=== PATIENT | female | born 1975 | race Caucasian/White ===

== ENCOUNTER → 2017-03-13 | Outpatient (CLI) | payer OTHER ==
--- NOTE | 2017-03-13 20:39 | CT ---
EXAMINATION TYPE: CT sinus wo con DATE OF EXAM: 03/13/2017 7:38 PM COMPARISON: NONE HISTORY: Left ear feels plugged x [address] DLP: 648.00 mGycm Automated exposure control for dose reduction was used. FINDINGS: The orbital margins are intact. Globes are symmetric. There is fairly normal development and aeration of the paranasal sinuses. I see no bony destructive process. Nasal septum deviates to the left side. The zygomatic arches are intact. The visualized mastoid air cells appear normally aerated. External auditory canals appear normal. There is normal aeration of the epitympanic recess bilaterally. Tempor omandibular joints appear normal. IMPRESSION: NEGATIVE CT SCAN OF THE PARANASAL SINUSES. I DO NOT SEE A CAUSE FOR THE PATIENT'S SYMPTOMS.
== END | disposition home or self-care (01) ==
LOC: RADCTMAIN 19:09
PROVIDERS: ATTEND Family Medicine
DX: J32.9 Chronic sinusitis, unspecified (principal)
CPT/HCPCS: 70486

== ENCOUNTER → 2018-07-28 | Outpatient (CLI) | payer BC ==
--- NOTE | 2018-07-28 16:32 | US ---
EXAMINATION TYPE: US pelvic complete DATE OF EXAM: 07/28/2018 COMPARISON: NONE CLINICAL HISTORY: R10.9 abd pain. known fibroid, pelvic pain and pressure TECHNIQUE: TA. Date of LMP: 07/07/2018 EXAM MEASUREMENTS: Uterus: 16.2 x 13.9 x 10.3cm Endometrial Stripe: 1.1 cm Right Ovary: not seen Left Ovary: not seen 1. Uterus: Anteverted 12.2cm fibroid seen. This is heterogenous and isoechoic 2. Endometrium: wnl 3. Right Ovary: not seen due to enlarged UT and bowel gas 4. Left Ovary: not seen due to enlarged UT and bowel gas 5. Bilateral Adnexa: wnl 6. Posterior cul-de-sac: wnl IMPRESSION: 1. Large uterine fibroid
--- NOTE | 2018-07-28 16:34 | US ---
EXAMINATION TYPE: US abdomen complete DATE OF EXAM: 07/28/2018 COMPARISON: NONE CLINICAL HISTORY: R10.9 abd pain. abd pain and patient is unsure if related to known large fibroid in uterus, cholecystectomy EXAM MEASUREMENTS: Liver Length: 17.0 cm Gallbladder Wall: Surgically absent CBD: 0.4 cm Spleen: 9.9 cm Right Kidney: 9.5 x 4.5 x 3.9 cm Left Kidney: 10.7 x 3.5 x 4.2 cm Pancreas: wnl Liver: wnl Gallbladder: Surgically absent Evidence for sonographic Saunders's sign: no CBD: wnl Spleen: wnl Right Kidney: wnl Left Kidney: wnl Upper IVC: wnl Abd Aorta: wnl IMPRESSION: 1. Normal abdomen ultrasound
== END | disposition home or self-care (01) ==
LOC: RADUSWWP 07:32
PROVIDERS: ATTEND Family Medicine
DX: D25.9 Leiomyoma of uterus, unspecified (principal); R10.9 Unspecified abdominal pain
CPT/HCPCS: 76700; 76856

== ENCOUNTER → 2018-11-01 | Outpatient (CLI) | payer BC ==
[2018-11-01 17:40] LABS: Basophils # (A) 0.1 k/uL (0-0.2); Basophils % (A) 1 %; Eosinophils # (A) 0.2 k/uL (0-0.7); Eosinophils % (A) 3 %; HCT 40.3 % (34.0-46.0); HGB 13.3 gm/dL (11.4-16.0); Lymphocytes # (A) 1.7 k/uL (1.0-4.8); Lymphocytes % (A) 21 %; MCH 30.8 pg (25.0-35.0); MCHC 33.1 g/dL (31.0-37.0); Mean Platelet Volume 6.2; Monocytes # (A) 0.5 k/uL (0-1.0); Monocytes % (A) 6 %; Neutrophils # (A) 5.3 k/uL (1.3-7.7); Neutrophils % (A) 67 %; Platelet Count 284 k/uL (150-450); RBC 4.33 m/uL (3.80-5.40); RDW 12.6 % (11.5-15.5); WBC 7.9 k/uL (3.8-10.6)
[2018-11-01 17:57] LABS: Anion Gap 8 mmol/L; Blood Urea Nitrogen 13 mg/dL (7-17); Carbon Dioxide 28 mmol/L (22-30); Chloride 102 mmol/L (98-107); Glucose 110 mg/dL (74-99); Potassium 4.4 mmol/L (3.5-5.1); Sodium 138 mmol/L (137-145)
== END ==
LOC: LABPAT 17:04
PROVIDERS: ATTEND Obstetrics & Gynecology Obstetrics
DX: Z01.812 Encounter for preprocedural laboratory examination (principal); D25.9 Leiomyoma of uterus, unspecified
CPT/HCPCS: 80051; 82565; 82947; 84520; 85025; 87086

== ENCOUNTER 2018-11-09 05:50 | Day surgery (SDC) | payer BC ==
[2018-11-05 12:37] VITALS: BMI 22.7
--- NOTE | 2018-11-08 11:25 | P.HPOB ---
History of Present Illness H&P Date: 11/08/18 Chief Complaint: enlarged fibroid uterus, pelvic pain This is a pleasant 43 yo that presents with c/o pevic pain and known enlarged fibroid uterus. she had an ultrasound done revelaing an enlarged uterus and largest fibroid measuring 12 cm, total uterus is 16 cm. menses can be heavy at times but are regular q month. she states she just feels like her abdomen is enlarging and she feels . Review of Systems Constitutional: Reports fatigue, Denies chills, Denies fever Ears, nose, mouth and throat: Denies headache Cardiovascular: Denies edema Respiratory: Denies cough, Denies dyspnea Gastrointestinal: Reports abdominal pain, Denies constipation, Denies diarrhea Genitourinary: Reports pelvic pain, Denies urge incontinence, Denies urgency Past Medical History Past Medical History: GERD/Reflux History of Any Multi-Drug Resistant Organisms: None Reported Past Surgical History: Cholecystectomy Additional Past Surgical History / Comment(s): NASAL SURGERY, RIGHT FOOT X2- BUNION , LEFT FOOT-BUNION Past Anesthesia/Blood Transfusion Reactions: Postoperative Nausea & Vomiting ( PONV) Smoking Status: Never smoker - Past Family History Sister(s) Family Medical History: Cancer Additional Family Medical History / Comment(s): MELENOMA Medications and Allergies Home Medications Medication Instructions Recorded Confirmed Type Albuterol Sulfate [Proair Hfa] 2 puff INHALATION Q6HR PRN 11/05/18 11/05/18 History Azithromycin [Zithromax Z-pack] 250 mg PO DAILY 11/05/18 11/05/18 History Esomeprazole Magnesium [NexIUM] 20 mg PO 1200 11/05/18 11/05/18 History Fluticasone Nasal [place] [Flonase 2 spr EA NOSTRIL DAILY PRN 11/05/18 11/05/18 History Nasal [place]] Leuprolide Acetate [Lupron Depot] 11.25 mg IM Q90D 11/05/18 11/05/18 History Loratadine-Pseudoeph 5-120 mg 1 each PO Q12HR 11/05/18 11/05/18 History [Claritin-D 12 HR] methylPREDNISolone Dose Pack 4 mg PO DIRECTED 11/05/18 11/05/18 History [Medrol Dose Pack] Allergies Allergy/AdvReac Type Severity Reaction Status Date / Time EYE DROP (UNKNOWN NAME) Allergy Unknown Uncoded 11/05/18 12:57 Exam Osteopathic Statement: *. No significant issues noted on an osteopathic structural exam other than those noted in the History and Physical/Consult. targeted physical exam, in general this is a well nourished well developed female in no acute distress. heart noted to have RRR< lungs are clear to auscultation, abdomen is distended with enlarged uterus, on bimanual exam, uterus is enlarged but mobile measuring 16-18 weeks. Assessment and Plan (1) Uterine fibroid Status: Acute Code(s): D25.9 - LEIOMYOMA OF UTERUS, UNSPECIFIED SNOMED Code( s): 92303281 (2) Enlarged uterus Status: Acute Code(s): N85.2 - HYPERTROPHY OF UTERUS SNOMED Code(s): 601433157 Plan: plan RAVH/DC, possible open to complete procedure. risks are reviewed with pt in detail including but not limited to infection, bleeding, damage to bladder bowel or ureteric injury or other pelvic structures. all questions answered and pt wishes to proceed with surgery. Time with Patient: Greater than 30
[~2018-11-09 05:50] MED LIST: HYDROmorphone 1 MG/ML 1 ML SYRINGE IVP PRN; LIDOCAINE 1% 20 ML VIAL (10MG/ML) FOR IV START INTRADERMA PRN; MIDAZOLAM 2 MG/2 ML VIAL IV PRN; ceFAZolin IN SWFI 2 GM/20 ML SYRINGE IVP ONE; fentaNYL (PF) 50 MCG/ML 2 ML AMP IV PRN
[2018-11-09 06:38] LABS: Glucose,Whole Blood 88 mg/dL (75-99)
[2018-11-09] MEDS: LACTATED RINGERS 1,000 ML IV SCH ×3 (06:55→11:48)
[2018-11-09] MEDS: DEXAMETHASONE SOD PHOSPHATE 10 MG/ML 1 ML VIAL IV ONE (06:56)
[2018-11-09] MEDS: ONDANSETRON 4 MG/2 ML VIAL IVP ONE (06:56)
[2018-11-09] MEDS ORDERED: ONDANSETRON 4 MG/2 ML VIAL IVP PRN (07:35)
[2018-11-09] MEDS ORDERED: Acetaminophen-Codeine 300-30mg TAB PO PRN (07:35)
[2018-11-09] MEDS ORDERED: diphenhydrAMINE 25 MG CAP PO PRN (07:35)
[2018-11-09] MEDS ORDERED: IBUPROFEN 600 MG TAB PO PRN (07:35)
[2018-11-09] MEDS ORDERED: BUPIVACAINE (PF) 0.5% 30 ML VIAL SQ ONE (08:20)
--- NOTE | 2018-11-09 09:45 | P.OP ---
Date of Procedure: 11/09/18 Preoperative Diagnosis: Enlarged uterus, uterine fibroids Postoperative Diagnosis: Same Procedure(s) Performed: Robotic-assisted vaginal hysterectomy with bilateral salpingectomy, diagnostic cystoscopy Anesthesia: RODOLFOA Surgeon: Ely Iniguez Medical Records Clerk #1: Naty Michel Estimated Blood Loss (ml): 100 IV fluids (ml): 1,100 Urine output (ml): 200 Pathology: other (Uterus cervix fallopian tubes) Condition: stable Disposition: PACU Indications for Procedure: Enlarged uterus with noted uterine fibroids largest measuring 12 cm, pelvic pressure and abdominal bloating Operative Findings: Globular enlarged uterus normal ovaries bilaterally otherwise normal upper abdomen, on cystoscopy bladder was noted to be normal intact, both ureteral orifices were spilling clear yellow urine in normal fashion Description of Procedure: Patient is in the preoperative area and informed consent is obtained once again. She is reminded of the risks of surgery including but not limited to infection, bleeding, damage to bladder, bowel, ureteric or other pelvic structures. Patient states understanding and wishes to proceed. Patient was taken to the back to the operating suite where general anesthesia was obtained without difficulty by the anesthesia department. She was then prepped and draped in the normal sterile fashion in the dorsal lithotomy position. A Sherwood catheter was then placed under sterile technique. A weighted speculum was placed in the posterior vaginal vault the anterior lip of the cervix is visualized and grasped with a single-tooth tenaculum. Endocervical canal was then dilated and a medium V care was placed into the endometrial cavity the balloon was insufflated and cervical Placed snugly against the cervix. At this point all instruments were removed from the patient's vaginal vault. Attention was then turned to the patient's abdomen where 3 fingerbreadths above the umbilicus a small skin incision is made through this incision the Veress needle was placed. Once the Veress needle was deemed to be in appropriate position with a drop in CO2 pressure with insufflation of CO2 gas CO2 insufflation was allowed to occur. Approximately 3 L of gas were used to obtain pneumoperitoneum. At this time it was extended to 12 mm and a 12 mm trocar and sleeve with the laparoscope in place was placed under direct visualization. The additional port sites are placed at 10 cm lateral and 3 cm inferior to the midline port these 8 mm operative ports and the da Demarcus machine. In the left upper quadrant 12 mm trocar and sleeve is placed under direct visualization. The above noted findings were visualized. The da Demarcus was then docked in the usual fashion in the operative arms were placed. In the right operative arms and monopolar scissors is placed in the left operative arm the bipolar forceps was placed. Attention was then turned to the patient's left fallopian tube which was grasped regular to the mesosalpinx and continued to needed toward the uterine ovarian ligament this was then coagulated distally and proximally and divided. This continued through the broad and toward the round which was regulated distally and proximally and divided. The bladder flap was then created from the left using sharp and blunt dissection. This was then repeated on the right. The ascending branch of the uterine artery on the right side after the bladder reflection and then Band-Aid was visualized regulated distally and proximally divided. This was then repeated on the opposite side. A Ray-Radha was then passed into the abdomen and the bladder was then dissected away further from the operating field. At this point the uterine arteries had been coagulated and were hemostatic on both sides and the only remaining attachment was the vaginal attachment, therefore a colpotomy incision was made in circumferential fashion and the uterus was placed into the vaginal vault. The uterus was then bivalved from below and delivered intact. The pelvis was then copiously irrigated and the vaginal cuff was then closed in [id number] sutures of 0 Vicryl. Approximately 5 sutures were used to obtain closure. Both ureters were noted to be pulsating normally in the abdomen at this point the da Demarcus robot was undocked in usual fashion and attention was then turned the patient's Sherwood catheter the catheter was removed without difficulty a cystoscope was placed through the urethra and toward the bladder the bladder bubble was noted the bladder was noted to be intact and both ureteral orifices were noted to be spilling clear yellow urine in a normal fashion. Cystoscopy fluid along with the cystoscope was removed. The Sherwood catheter was then replaced. Attention was then turned to the patient's abdomen where the skin incisions were closed with 4-0 Vicryl in a subcuticular fashion Steri-Strips and sterile dressings were applied as needed. All counts were correct 2 patient tolerated procedure well and was taken the recovery room awake and in stable condition.
[2018-11-09] MEDS ORDERED: IBUPROFEN IV 800 MG in SODIUM CHLORIDE 0.9% 250 ML IV ONE (10:30)
[2018-11-09 11:37] VITALS: RESP 16
[2018-11-09] MEDS: Acetaminophen-Codeine 300-30mg TAB PO PRN (20:40)
[2018-11-09] MEDS: SENNOSIDES-DOCUSATE SODIUM 1 EACH TAB PO SCH (21:20)
[2018-11-10] MEDS: DEXAMETHASONE SOD PHOSPHATE 10 MG/ML 1 ML VIAL IV ONE (05:07)
[2018-11-10] MEDS: ONDANSETRON 4 MG/2 ML VIAL IVP ONE (05:10)
[2018-11-10] MEDS: Acetaminophen-Codeine 300-30mg TAB PO PRN ×2 (07:50→15:33)
[2018-11-10] MEDS: SENNOSIDES-DOCUSATE SODIUM 1 EACH TAB PO SCH (07:52)
[2018-11-10 07:59] LABS: Basophils % (A) 0 %; Eosinophils # (A) 0.1 k/uL (0-0.7); Eosinophils % (A) 1 %; HCT 39.9 % (34.0-46.0); HGB 13.6 gm/dL (11.4-16.0); Lymphocytes # (A) 2.6 k/uL (1.0-4.8); Lymphocytes % (A) 25 %; MCH 31.3 pg (25.0-35.0); Mean Platelet Volume 6.2; Monocytes # (A) 0.7 k/uL (0-1.0); Monocytes % (A) 7 %; Neutrophils # (A) 6.8 k/uL (1.3-7.7); Neutrophils % (A) 66 %; Platelet Count 260 k/uL (150-450); RBC 4.33 m/uL (3.80-5.40); RDW 12.7 % (11.5-15.5); WBC 10.3 k/uL (3.8-10.6)
--- NOTE | 2018-11-10 08:36 | P.DS ---
Providers Date of admission: Expected date of discharge: 11/10/18 Attending physician: Ely Iniguez Primary care physician: Andrey Blanchard - Discharge Diagnosis(es) (1) Uterine fibroid Current Visit: No Status: Acute (2) Enlarged uterus Current Visit: No Status: Acute (3) S/P laparoscopic hysterectomy Current Visit: Yes Status: Acute Hospital Course: This is a 43-year-old healthy female with a known enlarged fibroid uterus that presented yesterday for robotic-assisted vaginal hysterectomy with bilateral salpingectomy, diagnostic cystoscopy. Patient had been on Lupron for the past 2 months given the enlarged nature of her uterus, with largest fibroid measuring 12 cm total uterine length 16-17 weeks. Surgery was completed without difficulty for further details on the procedure please see the operative report. Patient has done recently well post operatively. Patient did have issues with her Sherwood catheter last night but it draining clear yellow urine throughout the evening we are awaiting spontaneous void this morning. She states her pain is well-controlled with Tylenol No. 3. She is tolerating regular diet without nausea or vomiting and she wishes to be discharged home once spontaneous void is achieved. Patient Condition at Discharge: Good Plan - Discharge Summary New Discharge Prescriptions: No Action methylPREDNISolone Dose Pack [Medrol Dose Pack] 4 mg PO DIRECTED Azithromycin [Zithromax Z-pack] 250 mg PO DAILY Fluticasone Nasal [place] [Flonase Nasal [place]] 2 spr EA NOSTRIL DAILY PRN PRN Reason: Allergy Symptoms Loratadine-Pseudoeph 5-120 mg [Claritin-D 12 HR] 1 each PO Q12HR Esomeprazole Magnesium [NexIUM] 20 mg PO 1200 Albuterol Sulfate [Proair Hfa] 2 puff INHALATION Q6HR PRN PRN Reason: Shortness Of Breath Leuprolide Acetate [Lupron Depot] 11.25 mg IM Q90D Discharge Medication List Albuterol Sulfate [Proair Hfa] 2 puff INHALATION Q6HR PRN 11/05/18 [History] Azithromycin [Zithromax Z-pack] 250 mg PO DAILY 11/05/18 [History] Esomeprazole Magnesium [NexIUM] 20 mg PO 1200 11/05/18 [History] Fluticasone Nasal [place] [Flonase Nasal [place]] 2 spr EA NOSTRIL DAILY PRN [History] Leuprolide Acetate [Lupron Depot] 11.25 mg IM Q90D 11/05/18 [History] Loratadine-Pseudoeph 5-120 mg [Claritin-D 12 HR] 1 each PO Q12HR 11/05/18 [ History] methylPREDNISolone Dose Pack [Medrol Dose Pack] 4 mg PO DIRECTED 11/05/18 [ History] Follow up Appointment(s)/Referral(s): Ely Iniguez DO [Doctor of Osteopathic Medicine] - 1 Week Patient Instructions/Handouts: Laparoscopic Hysterectomy (DC) Discharge Disposition: HOME SELF-CARE
[2018-11-10 15:36] VITALS: BP 119/74; PULSE 81; TEMP 98.5
== END 2018-11-10 16:31 | disposition home or self-care (01) ==
LOC: OR 05:50 → 4FBP 09:40 → OR 11-10 16:31
PROVIDERS: ATTEND Obstetrics & Gynecology Obstetrics
DX: D25.9 Leiomyoma of uterus, unspecified (principal); N83.8 Other noninflammatory disorders of ovary, fallopian tube and broad ligament; N85.2 Hypertrophy of uterus; K21.9 Gastro-esophageal reflux disease without esophagitis; J45.909 Unspecified asthma, uncomplicated; Z79.52 Long term (current) use of systemic steroids; Z79.899 Other long term (current) drug therapy; Z79.2 Long term (current) use of antibiotics; Z90.49 Acquired absence of other specified parts of digestive tract
CPT/HCPCS: 81025; 85025; 88307; 58573; C1762; J1100; J2405; J1741; J0690

== ENCOUNTER → 2019-06-29 | Outpatient (CLI) | payer BC ==
--- NOTE | 2019-06-30 15:23 | MM ---
Reason for exam: screening (asymptomatic). Last mammogram was performed 4 years and 11 months ago. History: Patient is postmenopausal. Physical Findings: A clinical breast exam by your physician is recommended on an annual basis and results should be correlated with mammographic findings. MG Screening Mammo w CAD Bilateral CC and MLO view(s) were taken. Prior study comparison: August 14, 2014, bilateral MG diagnostic mammo w CAD BUDDY. The breast tissue is heterogeneously dense. This may lower the sensitivity of mammography. Benign appearing calcifications in the left breast. ASSESSMENT: Benign, BI-RAD 2 RECOMMENDATION: Routine screening mammogram of both breasts in 1 year.
== END | disposition home or self-care (01) ==
LOC: RADMAMWWP 15:04
PROVIDERS: ATTEND Family Medicine
DX: Z12.31 Encounter for screening mammogram for malignant neoplasm of breast (principal)
CPT/HCPCS: 77067

== ENCOUNTER → 2019-09-05 | Outpatient (CLI) | payer BC ==
--- NOTE | 2019-09-05 11:37 | ECHOS ---
STRESS ECHOCARDIOGRAM INDICATIONS: Chest pain/shortness of breath. MEDICATIONS: Gabapentin, Flonase, Nexium BASELINE HEART RATE: 89 BASELINE BLOOD PRESSURE: 104/64 MAXIMUM HEART RATE: 166 MAXIMUM BLOOD PRESSURE: 191/90 85% MPHR: 149 100% MPHR: 175 METS: 12.1 MAXIMUM STAGE REACHED: 4 TOTAL EXERCISE TIME: 11:00 CLINICAL INFORMATION: Patient was exercised for a total period of 11 minutes. The peak heart rate of 166 was achieved. Maximum blood pressure of 191/90 mmHg was noted. Resting EKG shows normal sinus rhythm with normal FL interval and QRS duration and normal ST-T waves. No ST- segment depression suggestive of ischemia is noted. No dysrhythmias are noted. The baseline echocardiographic images reveals normal left ventricular chamber size with normal left ventricular systolic function in the immediate postexercise period. Normal increase in the wall thickness and contractility is noted. FINAL IMPRESSION: 1. This stress echocardiographic study is negative for stress-induced ischemia. 2. EKG portion of the stress test is not suggestive of ischemia. 3. Patient's exercise tolerance is normal. MMODL / IJN: [id number] /
== END | disposition home or self-care (01) ==
LOC: RADNMMAIN 09:08
PROVIDERS: ATTEND Family Medicine
DX: R06.00 Dyspnea, unspecified (principal)
CPT/HCPCS: 93351

== ENCOUNTER → 2020-12-03 | Outpatient (CLI) | payer BC ==
--- NOTE | 2020-12-05 10:46 | MM ---
Reason for exam: screening (asymptomatic). Last mammogram was performed 1 year and 5 months ago. History: Patient is postmenopausal. Physical Findings: Nurse did not find any significant physical abnormalities on exam. MG Screening Mammo w CAD Bilateral CC and MLO view(s) were taken. Prior study comparison: June 29, 2019, bilateral MG screening mammo w CAD. August 14, 2014, bilateral MG diagnostic mammo w CAD BUDDY. The breast tissue is heterogeneously dense. This may lower the sensitivity of mammography. Finding: There is an intermediate concern, suspicious equal density (isodense), indistinct round mass located 1 cm from the nipple in the subareolar position of the right breast. New finding since June 29, 2019. ASSESSMENT: Incomplete: need additional imaging evaluation, BI-RAD 0 RECOMMENDATION: Special view mammogram of the right breast. If lesion persists on supplemental views, image directed ultrasound is recommended. [facility] will attempt to contact patient to return for supplemental views and ultrasound if indicated.
== END | disposition home or self-care (01) ==
LOC: RADMAMWWP 13:58
PROVIDERS: ATTEND Family Medicine
DX: Z12.31 Encounter for screening mammogram for malignant neoplasm of breast (principal)
CPT/HCPCS: 77067

== ENCOUNTER 2021-03-01 07:14 | Day surgery (SDC) | payer BC ==
[2021-02-28 09:08] VITALS: BMI 24.4
[2021-03-01 07:40] VITALS: RESP 16; TEMP 98.2
[2021-03-01] MEDS: LACTATED RINGERS 1,000 ML IV SCH ×2 (07:48→08:14)
[2021-03-01] MEDS ORDERED: LIDOCAINE 1% (10MG/ML) FOR IV START INTRADERMA ONE (07:48)
[2021-03-01] MEDS ORDERED: PROPOFOL 10 MG/ML 20 ML VIAL IV ONE (08:15)
[2021-03-01] MEDS ORDERED: MIDAZOLAM 2 MG/2 ML VIAL ONE (08:15)
[2021-03-01] MEDS ORDERED: fentaNYL (PF) 50 MCG/ML 2 ML AMP ONE (08:15)
[2021-03-01] MEDS ORDERED: IV FLUID CONTINUATION 1,000 ML IV ONE (08:31)
--- NOTE | 2021-03-01 08:50 | P.PCN ---
Date of Procedure: 03/01/21 Procedure(s) Performed: BRIEF HISTORY: Patient is a 46-year-old pleasant male scheduled for an elective colonoscopy as a part of evaluation of chronic diarrhea for the last several weeks duration. She she has diarrhea anywhere from 4-5 a day which are loose to watery in consistency. Denies any blood or mucus in the stool. PROCEDURE PERFORMED: Colonoscopy with random biopsy. PREOPERATIVE DIAGNOSIS: Chronic diarrhea of several weeks duration. IV sedation per Anesthesia. PROCEDURE: After informed consent was obtained, the patient, was brought into the endoscopy unit. IV sedation was administered by Anesthesia under continuous monitoring. Digital rectal examination was normal. Initially the Olympus CF-160 flexible video colonoscope was then inserted in the rectum, gradually advanced into the cecum without any difficulty. Careful examination was performed as the scope was gradually being withdrawn. Ileocecal valve and the appendiceal orifice were visualized and appeared normal. Prep was excellent. Mucosa of the cecum, ascending colon, transverse colon, descending colon, sigmoid colon, and rectum appeared normal. Random biopsies were done from ascending and descending colon to rule out microscopic/collagenous colitis Retroflexion was performed in the rectum and no lesions were seen. The patient tolerated the procedure well. IMPRESSION: Normal-appearing colon from rectum to cecum with no evidence of colitis or colorectal neoplasia . RECOMMENDATIONS: Findings of this examination were discussed with the patient as well as a family. She was advised to follow with the biopsies. She she is been having side effects with dicyclomine and hence he was advised to stop it. She'll be started on Imodium 1 tablet twice daily as needed and she'll be seen in office in 3-4 weeks.
[2021-03-01 08:53] VITALS: BP 113/78; PULSE 71
== END 2021-03-01 09:05 | disposition home or self-care (01) ==
LOC: ORWHC2ENDO 07:14
PROVIDERS: ATTEND Internal Medicine Gastroenterology
DX: K52.9 Noninfective gastroenteritis and colitis, unspecified (principal); K21.9 Gastro-esophageal reflux disease without esophagitis; Z79.899 Other long term (current) drug therapy; Z88.8 Allergy status to other drugs, medicaments and biological substances
CPT/HCPCS: 88305; 45380; J2250; J3010; J2704

== ENCOUNTER → 2024-03-21 | Outpatient (CLI) | payer BC ==
--- NOTE | 2024-03-22 07:24 | MM ---
Reason for Exam: Screening (asymptomatic). Last mammogram was performed 3 year(s) and 3 month(s) ago. Patient History: Menarche at age 12. First Full-Term at age 28. Hysterectomy at age 44. Postmenopausal. Patient has history of breast feeding. Risk Values: Magdalena 5 year model risk: 1.1%. NCI Lifetime model risk: 9.9%. Prior Study Comparison: 08/14/2014 Bilateral Diagnostic Mammogram, [facility]. 06/29/2019 Bilateral Screening Mammogram, [facility]. 12/03/2020 Bilateral Screening Mammogram, [facility]. Tissue Density: The breasts are extremely dense, which lowers the sensitivity of mammography. Findings: Analyzed By CAD. There is no suspicious group of microcalcifications or new suspicious mass in either breast. Overall Assessment: Negative, BI-RAD 1 Management: Screening Mammogram of both breasts in 1 year. . Patient should continue monthly self-breast exams. A clinical breast exam by your physician is recommended on an annual basis. This exam should not preclude additional follow-up of suspicious palpable abnormalities. Note on Magdalena scores and lifetime risk: 1. A Magdalena score greater than 3% is considered moderate risk. If this is the case, consider specialist referral to assess eligibility for a risk reducing agent. 2. If overall lifetime risk for the development of breast cancer is 20% or higher, the patient may qualify for future screening with alternating mammogram and breast MRI. Electronically signed and approved by: Charan Cabrera M.D. Radiologis
== END | disposition home or self-care (01) ==
LOC: RADMAMWWP 09:59
PROVIDERS: ATTEND Family Medicine
DX: Z12.31 Encounter for screening mammogram for malignant neoplasm of breast (principal); Z78.0 Asymptomatic menopausal state
CPT/HCPCS: 77063; 77067

== ENCOUNTER → 2024-11-16 | Outpatient (CLI) | payer BC ==
--- NOTE | 2024-11-16 18:23 | CT ---
EXAMINATION TYPE: CT abdomen pelvis w con DATE OF EXAM: 11/16/2024 4:42 PM COMPARISON: None CLINICAL INDICATION: Female, 49 years old with history of R10.13 Epigastric discomfort; constipation/ epigastric pain TECHNIQUE: Axial CT abdomen pelvis w con;Sagittal and coronal reformats were created on a separate w orkstation. Contrast used:100ml mL of Isovue 300 with IV Contrast, (none if empty) Oral contrast used: with Oral Contrast (none if empty) CT DLP: 645.9 mGycm, Automated exposure control for dose reduction was used. FINDINGS: LOWER CHEST: Unremarkable ABDOMEN LIVER: Unremarkable GALLBLADDER AND BILE DUCTS: Cholecystectomy clip. PANCREAS: Unremarkable. SPLEEN: Unremarkable. ADRENAL GLANDS: Unremarkable. KIDNEYS AND URETERS: No evidence of hydronephrosis or renal calculus. The ureters are unremarkable. PELVIS BLADDER: No evidence for wall thickening or mass given limitations of exam. REPRODUCTIVE: The uterus is surgically absent. ABDOMEN & PELVIS STOMACH AND BOWEL: Stomach and duodenum are unremarkable No evidence for acute abdominal process. Small to moderate amount of stool throughout the colon. No e vidence of bowel obstruction. Oral contrast extends into the large bowel transverse colon. PERITONEUM/RETROPERITONEUM: No evidence of pneumoperitoneum or free fluid. VASCULATURE: No evidence of aortic aneurysm. MUSCULOSKELETAL: No acute osseous abnormalities LYMPH NODES: No gross evidence for lymphadenopathy. SOFT TISSUE/ABDOMINAL WALL: Fat-containing umbilical hernia. IMPRESSION: Small to moderate amount of stool throughout the colon. No evidence for acute abdominal process. The stomach and duodenum are grossly unremarkable. [facility], , 11/16/2024 6:21 PM
== END | disposition home or self-care (01) ==
LOC: RADCTMAIN 14:33
PROVIDERS: ATTEND Family Medicine
DX: R10.13 Epigastric pain (principal); R19.5 Other fecal abnormalities
CPT/HCPCS: 74177; Q9967

== ENCOUNTER 2025-06-23 18:30 | Emergency (ER) | payer BC ==
[2025-06-23 18:43] VITALS: TEMP 97.8
--- NOTE | 2025-06-23 19:29 | ED ---
General Adult HPI - General Chief complaint: Recheck/Abnormal Lab/Rx Stated complaint: Hypertension Time Seen by Provider: 06/23/25 18:46 Source: patient Mode of arrival: ambulatory Limitations: no limitations - History of Present Illness Initial comments: Patient is a 50-year-old female with no past medical history presenting today for hypertension. Patient states she noticed a tingling sensation in her chest earlier today and measured her blood pressure. On her check blood pressure was 186/113. Earlier today was 166/119. States she has had uptrending blood pressures over the course of the last 2 months since she has been started on testosterone injections, which she is receiving for menopause symptoms. Her last injection was 1 month ago and her doctor has been trying to decrease her dose to due to concern for hypertension secondary to this. Next dose is scheduled for tomorrow. She receives IM injections at her doctor's office. She denies strokelike symptoms such as severe headache, changes of vision, focal numbness or weakness, slurred speech, difficulty in breathing, swelling in her legs, or decreased urine output. States she has chronic abdominal pain from IBS but denies any new abdominal pain. No first-degree family members history of ACS or stroke. Is not on any blood pressure medications. States she does drink 1 large coca-cola in the morning and 1-2 cans in the afternoon, when asked about caffeine use. - Related Data Home Medications Medication Instructions Recorded Confirmed Albuterol Sulfate [Proair Hfa] 2 puff INHALATION Q6HR PRN 11/05/18 03/01/21 Esomeprazole Magnesium [NexIUM] 20 mg PO 1200 11/05/18 03/01/21 Fluticasone Nasal [place] [Flonase 2 spr EA NOSTRIL DAILY PRN 11/05/18 03/01/21 Nasal [place]] Loratadine-Pseudoeph 5-120 mg 1 each PO Q12HR 11/05/18 03/01/21 [Claritin-D 12 HR] Dicyclomine HCl 20 mg PO BID 02/28/21 03/01/21 Allergies Allergy/AdvReac Type Severity Reaction Status Date / Time lifitegrast [From Xiidra] AdvReac Unknown Verified 06/23/25 18:43 Review of Systems ROS Statement: Those systems with pertinent positive or pertinent negative responses have been documented in the HPI. ROS Other: All systems not noted in ROS Statement are negative. Past Medical History Past Medical History: Asthma, GERD/Reflux Additional Past Medical History / Comment(s): excessive diarrhea. exercise induced asthma History of Any Multi-Drug Resistant Organisms: None Reported Past Surgical History: Cholecystectomy, Hysterectomy, Tonsillectomy Additional Past Surgical History / Comment(s): bunionectomy, sinus surgery Past Anesthesia/Blood Transfusion Reactions: Postoperative Nausea & Vomiting (PONV) Past Psychological History: No Psychological Hx Reported Smoking Status: Never smoker General Exam - General Exam Comments Initial Comments: PE: CONSTITUTIONAL: No apparent distress, well appearing SKIN: Warm, dry, no jaundice, hives or petechiae EYES: Pupils are equally round, extraocular movements intact without nystagmus, clear conjunctiva, non-icteric sclera HENT: Normocephalic, atraumatic, moist mucus membranes, oropharynx clear without exudates NECK: , Full range of motion, normal appearance PULMONARY: Clear to auscultation without wheezes, rhonchi, or rales, normal excursion, no accessory muscle use and no stridor CARDIOVASCULAR: Regular rate, rhythm, normal S1 and S2. No appreciated murmurs, rubs or gallops. Strong radial pulses with intact distal perfusion. No lower extremity edema GASTROINTESTINAL: Soft, active bowel sounds throughout, non-tender, non- distended, no palpable masses, no rebound or guarding. No hepatosplenomegaly MUSCULOSKELETAL: Extremities have no gross deformity, no edema, redness, or swelling. No calf swelling NEUROLOGIC:_a/o x 3, GCS 15, normal mentation and speech. Moves all extremities x 4 without motor or sensory deficit PSYCHIATRIC:_normal mood and affect, thought process is clear and linear Limitations: no limitations Course Vital Signs 06/23/25 06/23/25 18:35 20:47 Temperature 97.8 F Pulse Rate 90 69 Respiratory 22 18 Rate Blood Pressure 176/125 150/106 O2 Sat by Pulse 100 99 Oximetry EKG Findings - EKG Comments: EKG Findings:: Sinus rhythm, rate 87 bpm, no significant ST elevations or depressions, no arrhythmia, intervals in acceptable limits, normal Medical Decision Making - Medical Decision Making Was pt. sent in by a medical professional or institution (, PA, MINING AND QUARRYING MACHINERY REPAIRER, urgent c are, hospital, or group home...) When possible be specific @ -No Did you speak to anyone other than the patient for history (EMS, parent, family, police, friend...)? What history was obtained from this source @Spoke with patient's who states patient has had gradually increasing blood pressure since starting testosterone use Did you review nursing and triage notes (agree or disagree)? Why? @ -I reviewed nursing and triage notes Were old charts reviewed (outside hosp., previous admission, EMS record, old EKG, old radiological studies, urgent care reports/EKG's, group home records)? Report findings @ -Medical records reviewed patient CT of the pelvis on 11/16/2024 and showed moderate amount of stool throughout the colon but no acute intra-abdominal process Differential Diagnosis (chest pain, altered mental status, abdominal pain women, abdominal pain men, vaginal bleeding, weakness, fever, dyspnea, syncope, headache, dizziness, GI bleed, back pain, seizure, CVA, palpatations, mental health, musculoskeletal)? @ -Differential Chest Pain: Stable Angina, Unstable Angina, STEMI, NSTEMI Aortic Dissection, pericarditis, pleurisy, chostochondirits, Pneumothorax, Musculoskeletal, Esophageal Spasm GERD, Cholecystitis, Pancreatitis, Zoster, this is not meant to be an all-inclu sive list. EKG interpreted by me (3pts min.). @ -As above X-rays interpreted by me (1pt min.). @Personally reviewed chest x-ray see no evidence of cardiomegaly or consolidations or pleural effusion CT interpreted by me (1pt min.). @ -None done U/S interpreted by me (1pt. min.). @ -None done What testing was considered but not performed or refused? (CT, X-rays, U/S, labs)? Why? @ -None What meds were considered but not given or refused? Why? @ -None Did you discuss the management of the patient with other professionals (professionals i.e. , PA, MINING AND QUARRYING MACHINERY REPAIRER, lab, RT, psych nurse, psychologist social, information technology director, teacher, third officer, window caser)? Give summary @ -No Was smoking cessation discussed for >3mins.? @ -No Was critical care preformed (if so, how long)? @ -No Were there social determinants of health that impacted care today? How? (Homelessness, low income, unemployed, alcoholism, drug addiction, transportation, low edu. Level, literacy, decrease access to med. care, snf, rehab)? @ -No Was there de-escalation of care discussed even if they declined (Discuss DNR or withdrawal of care, Hospice)? @ -No What co-morbidities impacted this encounter? (DM, HTN, Smoking, COPD, CAD, Cancer, CVA, ARF, Chemo, Hep., AIDS, mental health diagnosis, sleep apnea, morbid obesity)? @Menopausal currently on testosterone Was patient admitted / discharged? Hospital course, mention meds given and route , prescriptions, significant lab abnormalities, going to OR and other pertinent info. @ Discharged- This is a pleasant 50-year-old female presenting today for tingling in her chest and hypertension. Blood pressure on arrival was 176/125. She has documented blood pressures at home today 166/119 this morning and 186/113 this afternoon. Endorses chest tingling earlier otherwise is asymptomatic. Will check cardiac enzymes, basic labs, chest x-ray. Patient will receive IV labetalol due to elevated diastolic blood pressure. I do suspect blood pressure elevation may be secondary to testosterone use and caffeine use. Labs and imaging reviewed. Grossly within normal limits. Abnormal values not concerning for acute pathology related to presenting complaint. Patient asymptomatic. Blood pressure improved to 150/106. Discussed with patient plan for discharge home which she was agreeable. We discussed signs and symptoms to monitor for closely warranting return to the ED, such as chest pain, leg swelling decreased urine output, severe MARTIN, stroke like symptoms, or abdominal pain. Pt directed to forgo her next testosterone injection until she is able to discuss it with her doctor this coming week. Pt was instructed to gradually decrease caffeine use. In my medical judgment there is currently no evidence of an immediate life- threatening or surgical condition. Discharge is therefore indicated at this time. Discharge treatment instructions, follow up instructions, and appropriate emergency department return precautions were discussed with the patient and/or medical decision maker. Patient and/or medical decision maker expressed understanding of and agreed with the treatment plan, follow up instructions, and emergency department return precaution. All patient's and/or medical decision maker's questions were answered. The patient was advised that a small risk still exists that a serious condition could develop and was therefore instructed to return to the ED for any changes in symptoms, persistent symptoms, inability to obtain proper follow-up or for any further concerns. Patient received verbal and written instructions for this condition. Undiagnosed new problem with uncertain prognosis? @ -No Drug Therapy requiring intensive monitoring for toxicity (Heparin, Nitro, Insulin, Cardizem)? @ -No Were any procedures done? @ -No Diagnosis/symptom? @ Hypertension Acute, or Chronic, or Acute on Chronic? acute Uncomplicated (without systemic symptoms) or Complicated (systemic symptoms)? @uncomplicated Side effects of treatment? @ -No Exacerbation, Progression, or Severe Exacerbation? @ -No Poses a threat to life or bodily function? How? (Chest pain, [place], [place], pneumonia, PE, COPD, DKA, ARF, appy, cholecystitis, CVA, Diverticulitis, Homicidal, Suicidal, threat to staff... and all critical care pts) @ -No - Lab Data Result diagrams: 06/23/25 19:29 06/23/25 19:29 Lab Results 06/23/25 06/23/25 06/23/25 Range/Units 19:29 19:29 19:29 WBC 7.96 (4.50-10.00) 10*3/uL RBC 4.91 (4.10-5.20) 10*6/uL Hgb 15.3 H (12.0-15.0) g/dL Hct 44.2 (37.2-46.3) % MCV 90.0 (80.0-97.0) fL MCH 31.2 (27.0-32.0) pg MCHC 34.6 (32.0-37.0) g/dL Plt Count 319 (140-440) 10*3/uL MPV 8.8 L (9.5-12.2) fL Immature Gran % (Auto) 0.3 % Neutrophils % 60.5 % Lymphocytes % 29.0 % Monocytes % 7.5 % Eosinophils % 1.8 % Basophils % 0.9 % Immature Gran # 0.02 (0.00-0.04) 10*3/uL Neutrophils # 4.82 (1.80-7.70) 10*3/uL Lymphocytes # 2.31 (0.90-5.00) 10*3/uL Monocytes # 0.60 (0.20-1.00) 10*3/uL Eosinophils # 0.14 (0.04-0.35) 10*3/uL Basophils # 0.07 (0.00-0.10) 10*3/uL PT 10.4 (10.0-12.5) sec INR 0.9 (<1.2) APTT 25.1 (22.0-30.0) sec Sodium 141 (137-145) mmol/L Potassium 3.8 (3.5-5.1) mmol/L Chloride 102 (98-107) mmol/L Carbon Dioxide 30 (22-30) mmol/L Anion Gap 9 mmol/L BUN 10 (7-17) mg/dL Creatinine 0.84 (0.52-1.04) mg/dL Est GFR (CKD-EPI)AfAm >90 (>60 ml/min/1.73 sqM) Est GFR (CKD-EPI)NonAf 81 (>60 ml/min/1.73 sqM) Glucose 125 H (74-99) mg/dL Calcium 9.9 (8.4-10.2) mg/dL Magnesium 2.2 (1.6-2.3) mg/dL Total Bilirubin 0.6 (0.2-1.3) mg/dL AST 25 (14-36) U/L ALT 27 (4-34) U/L Alkaline Phosphatase 83 (38-126) U/L Troponin I (0.000-0.034) ng/mL NT-Pro-B Natriuret Pep <20 pg/mL Total Protein 8.1 (6.3-8.2) g/dL Albumin 4.9 (3.5-5.0) g/dL 06/23/25 Range/Units 19:29 WBC (4.50-10.00) 10*3/uL RBC (4.10-5.20) 10*6/uL Hgb (12.0-15.0) g/dL Hct (37.2-46.3) % MCV (80.0-97.0) fL MCH (27.0-32.0) pg MCHC (32.0-37.0) g/dL Plt Count (140-440) 10*3/uL MPV (9.5-12.2) fL Immature Gran % (Auto) % Neutrophils % % Lymphocytes % % Monocytes % % Eosinophils % % Basophils % % Immature Gran # (0.00-0.04) 10*3/uL Neutrophils # (1.80-7.70) 10*3/uL Lymphocytes # (0.90-5.00) 10*3/uL Monocytes # (0.20-1.00) 10*3/uL Eosinophils # (0.04-0.35) 10*3/uL Basophils # (0.00-0.10) 10*3/uL PT (10.0-12.5) sec INR (<1.2) APTT (22.0-30.0) sec Sodium (137-145) mmol/L Potassium (3.5-5.1) mmol/L Chloride (98-107) mmol/L Carbon Dioxide (22-30) mmol/L Anion Gap mmol/L BUN (7-17) mg/dL Creatinine (0.52-1.04) mg/dL Est GFR (CKD-EPI)AfAm (>60 ml/min/1.73 sqM) Est GFR (CKD-EPI)NonAf (>60 ml/min/1.73 sqM) Glucose (74-99) mg/dL Calcium (8.4-10.2) mg/dL Magnesium (1.6-2.3) mg/dL Total Bilirubin (0.2-1.3) mg/dL AST (14-36) U/L ALT (4-34) U/L Alkaline Phosphatase (38-126) U/L Troponin I <0.012 (0.000-0.034) ng/mL NT-Pro-B Natriuret Pep pg/mL Total Protein (6.3-8.2) g/dL Albumin (3.5-5.0) g/dL Disposition Clinical Impression: Hypertension Disposition: HOME SELF-CARE Condition: Stable Instructions (If sedation given, give patient instructions): Hypertension (ED) Additional Instructions: Every disease is a spectrum and a small chance still exists that a serious condi tion could develop, for this reason, please monitor yourself closely for new, changing or worsening symptoms, chest pain, difficulty breathing, leg swelling, no urine output for greater than 12 hours, new abdominal pain, strokelike symptoms such as worst headache of your life, changes in vision, numbness, weakness, slurred speech or confusion,, fever, inability to tolerate/keep down fluids or your medications, inability to follow up with outpatient providers as instructed and should you experience these symptoms or should you have any further concerns for your wellbeing please return to the ED or call 911 immediately. Please discuss with your doctor your visit today before continuing your testosterone injections. Additionally please gradually decrease your caffeine intake, start with decreasing your caffeine intake by half and continue to gradually decrease. PLEASE call your primary care physician as soon as possible to arrange / discuss plan for followup appointment. Appointment in the next 1-3 days is strongly encouraged if possible. PLEASE let us know here before you leave if there is anything further we can do to be of any assistance. Take care and feel Better! Is patient prescribed a controlled substance at d/c from ED?: No Referrals: Andrey Blanchard MD [Primary Care Provider] - 1-2 days
[2025-06-23 19:42] LABS: Basophils # (A) 0.07 10*3/uL (0.00-0.10); Basophils % (A) 0.9 %; Eosinophils # (A) 0.14 10*3/uL (0.04-0.35); Eosinophils % (A) 1.8 %; HCT 44.2 % (37.2-46.3); HGB 15.3 g/dL (12.0-15.0); Lymphocytes # (A) 2.31 10*3/uL (0.90-5.00); Lymphocytes % (A) 29.0 %; MCH 31.2 pg (27.0-32.0); MCHC 34.6 g/dL (32.0-37.0); MCV 90.0 fL (80.0-97.0); Monocytes # (A) 0.60 10*3/uL (0.20-1.00); Monocytes % (A) 7.5 %; Neutrophils # (A) 4.82 10*3/uL (1.80-7.70); Neutrophils % (A) 60.5 %; Platelet Count 319 10*3/uL (140-440); RBC 4.91 10*6/uL (4.10-5.20); RDW 12.9 % (11.5-14.5); WBC 7.96 10*3/uL (4.50-10.00)
[2025-06-23 19:53] LABS: INR 0.9 (<1.2); Partial Thromboplastin Time 25.1 sec (22.0-30.0); Prothrombin Time 10.4 sec (10.0-12.5)
[2025-06-23 19:55] LABS: ALT 27 U/L (4-34); AST 25 U/L (14-36); African American GFR (CKD) >90 (>60 ml/min/1.73 sqM); Albumin 4.9 g/dL (3.5-5.0); Alkaline Phosphatase 83 U/L (38-126); Anion Gap 9 mmol/L; Blood Urea Nitrogen 10 mg/dL (7-17); Calcium 9.9 mg/dL (8.4-10.2); Carbon Dioxide 30 mmol/L (22-30); Chloride 102 mmol/L (98-107); Glucose 125 mg/dL (74-99); Magnesium 2.2 mg/dL (1.6-2.3); Non-African American GFR(CKD) 81 (>60 ml/min/1.73 sqM); Potassium 3.8 mmol/L (3.5-5.1); Sodium 141 mmol/L (137-145); Total Protein 8.1 g/dL (6.3-8.2)
[2025-06-23] MEDS: ASPIRIN 81 MG PO STA (20:01)
[2025-06-23] MEDS: LABETALOL SYRINGE 5 MG/ML (4 ML SYR) IVP STA (20:02)
[2025-06-23 20:03] LABS: NT-Pro-B-Type Natriuretic Pept <20 pg/mL
--- NOTE | 2025-06-23 20:37 | XR ---
EXAMINATION TYPE: XR chest 2V DATE OF EXAM: 06/23/2025 8:20 PM COMPARISON: None. CLINICAL INDICATION: Female, 50 years old with history of Chest Pain, TECHNIQUE: Frontal and lateral views of the chest are obtained. FINDINGS: There is no focal air space opacity, pleural effusion, or pneumothorax seen. The cardiac silhouette size is within normal limits. The osseous structures are intact. IMPRESSION: No acute cardiopulmonary process. [facility], , 06/23/2025 8:34 PM
[2025-06-23 20:49] VITALS: BP 150/106; PULSE 69; RESP 18
== END 2025-06-23 21:11 | disposition home or self-care (01) ==
LOC: EC 18:30
DX: I10 Essential (primary) hypertension (principal); Z88.8 Allergy status to other drugs, medicaments and biological substances
CPT/HCPCS: 36415; 93005; 83880; 80053; 83735; 84484; 85025; 85610; 85730; 71046; 99284; 96374; J1920